=== PATIENT | female | born 1965 | race Caucasian/White ===

== ENCOUNTER 2017-07-17 22:12 | Observation (INO) | payer SELFPAY ==
[2017-07-17] MEDS ORDERED: CLINDAMYCIN 900MG/D5W 900 MG/50 ML BAG IV ONE (22:58)
[2017-07-17 23:39] LABS: Absolute Lymphocytes (CBC) 1.1 K/uL (0.7-4.9); Absolute Neutrophil 4.5 K/uL (1.8-8.0); Basophils % 0.9 % (0-1.3); Eosinophils % 6.6 % (0-4.4); Hematocrit 39.2 % (36.0-45.0); Lymphocytes % 15.3 % (15.3-44.8); MCH 30.9 pg (27.0-35.0); MCV 92.1 fL (80-100); MPV 10.5 fL (7.6-11.3); Monocytes % 13.8 % (3.3-12.3); RBC Red Blood Cell Count 4.25 M/uL (3.86-4.86)
[2017-07-17] MEDS ORDERED: KETOROLAC 30 MG/ML INJ ONE (23:39)
[2017-07-17 23:46] LABS: Protime INR 0.97
[2017-07-18 00:08] LABS: Bicarbonate 29 mEq/L (21-31); CKMB Creatine Kinase MB 1.1 ng/ml (0.3-4.0); Glucose Level 106 mg/dL (65-120); Sodium Level 140 mEq/L (135-145)
[2017-07-18 00:14] LABS: ALT/SGPT 20 IU/L (10-60); AST/SGOT 29 IU/L (10-42); Albumin 3.8 g/dL (3.2-5.5); Alkaline Phosphatase 82 IU/L (42-121); BUN Blood Urea Nitrogen 10 mg/dL (6-20); Bilirubin Direct 0.1 mg/dL (0-0.2); Bilirubin Total < 0.2 mg/dL (0.3-1.2); Creatine Phosphokinase 55 IU/L (22-269); Magnesium 1.8 mg/dL (1.8-2.5); Protein, Total 6.8 g/dL (6.0-8.3)
--- NOTE | 2017-07-18 01:02 | EDPHYS ---
Physician Documentation [facility] Name: Cyndie Brooks Age: 52 yrs Sex: Female : 1965 Arrival Date: 07/17/2017 Time: 22:14 Bed 23 Private MD: ED Physician Quang George HPI: 07/18 00:17 This 52 yrs old Female presents to ER via Ambulatory with complaints of tw4 Facial Swelling, Chest Pain > 30 y/o, Headache, Leg Swelling. 00:17 The patient presents with cellulitis of the right eye and right cheek. Description: The tw4 affected area is moderate sized, erythematous. Onset: The symptoms/episode began/occurred suddenly, yesterday. Possible cause(s): dental caries. Associated signs and symptoms: The patient has no apparent associated signs or symptoms. The patient or guardian reports chest pain that is located primarily in the anterior chest wall. Onset: yesterday. The pain does not radiate. Modifying factors: the symptoms are alleviated by nothing, the symptoms are aggravated by nothing. Associated signs and symptoms: The patient has no apparent associated signs or symptoms. The chest pain is described as dull. Duration: The patient or guardian reports a single episode, that is now resolved. Modifying factors: The symptoms are alleviated by nothing. the symptoms are aggravated by nothing. Severity of pain: At its worst the pain was mild in the emergency department the pain has resolved. Severity of symptoms: At their worst the symptoms were mild, in the emergency department the symptoms have resolved. 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 - Social history:: Smoking status: Patient uses tobacco products, smokes one-half pack cigarettes per day. ROS: 07/18 00:17 Constitutional: Negative for fever, chills, and weight loss. tw4 ENT: Positive for dental pain, sinus pain. Cardiovascular: Positive for chest pain, Negative for edema, orthopnea, palpitations. Exam: 00:17 Constitutional: This is a well developed, well nourished patient who is awake, alert, tw4 and in no acute distress. 00:17 Cardiovascular: Regular rate and rhythm with a normal S1 and S2. No gallops, murmurs, or rubs. Normal PMI, no JVD. No pulse deficits. Respiratory: Lungs have equal breath sounds bilaterally, clear to auscultation and percussion. No rales, rhonchi or wheezes noted. No increased work of breathing, no retractions or nasal flaring. Abdomen/GI: Soft, non-tender, with normal bowel sounds. No distension or tympany. No guarding or rebound. No evidence of tenderness throughout. Back: No spinal tenderness. No costovertebral tenderness. Full range of motion. MS/ Extremity: Pulses equal, no cyanosis. Neurovascular intact. Full, normal range of motion. Neuro: Awake and alert, GCS 15, oriented to person, place, time, and situation. Cranial nerves II-XII grossly intact. Motor strength 5/5 in all extremities. Sensory grossly intact. Cerebellar exam normal. Normal gait. 00:17 Head/face: Noted is erythema, that is moderate, of the right eye and right cheek, swelling, that is moderate, of the right eye and right cheek. Vital Signs: 07/17 22:31 BP 158 / 91; Pulse 83; Resp 18; Temp 98.8; Pulse Ox 99% on R/A; Weight 74.84 kg; Height aa1 5 ft. 5 in. (165.10 cm); Pain 10/10; 23:40 BP 172 / 102; Pulse 77; Resp 18; Pulse Ox 100% ; tl3 07/18 01:13 BP 121 / 100; Pulse 78; Resp 16; Pulse Ox 99% ; tl3 07/17 22:31 Body Mass Index 27.46 (74.84 kg, 165.10 cm) aa1 MDM: 07/17 22:40 Patient medically screened. tw4 07/18 01:07 Differential diagnosis: acute myocardial infarction, acute pericarditis, anxiety, chest tw4 wall pain, pancreatitis, peptic ulcer disease, pulmonary embolus, stable angina, thoracic aortic disection. The patient was given aspirin in the Emergency Department. PHILIP Risk Score: TOTAL SCORE = 0. Data reviewed: vital signs, nurses notes. 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 Test interpretation: by ED physician or midlevel provider: ECG. Counseling: I had a detailed discussion with the patient and/or guardian regarding: the historical points, exam findings, and any diagnostic results supporting the discharge/admit diagnosis, lab results, radiology results. Physician consultation: Luz Banda MD was contacted at 00:55, regarding admission, need to evaluate the patient as soon as possible, and will see patient in inpatient room, later today. Admission orders: after a detailed discussion of the patient's condition and case, the admit orders are written by me. 02:06 ED course: CT reveals multiple dental caries without abscess. 07/17 22:43 Order name: Basic Metabolic Panel; Complete Time: 00:57 07/17 22:43 Order name: BNP; Complete Time: 00:11 07/18 00:12 Interpretation: Within normal limits. 07/17 22:43 Order name: CBC with Diff; Complete Time: 00:11 07/18 00:11 Interpretation: Normal except: MCV 92.1; PLT 145; MN% 13.8; EOSINOPHIL % 6.6. 07/17 22:43 Order name: Ckmb; Complete Time: 00:57 07/17 22:43 Order name: CPK; Complete Time: 00:57 07/17 22:43 Order name: LFT's; Complete Time: 00:57 07/17 22:43 Order name: Magnesium; Complete Time: 00:57 07/17 22:43 Order name: PT-INR; Complete Time: 00:11 07/18 00:12 Interpretation: Within normal limits. 07/17 22:43 Order name: Ptt, Activated; Complete Time: 00:11 07/18 00:13 Interpretation: Within normal limits. 07/17 22:43 Order name: Troponin (emerg Dept Use Only); Complete Time: 00:11 07/18 00:13 Interpretation: Within normal limits. 07/17 22:43 Order name: XRAY Chest (1 view) 07/17 22:50 Order name: Lactate; Complete Time: 00:11 07/18 00:13 Interpretation: Within normal limits. 07/18 00:11 Order name: CT Maxillofacial W/cont 4 07/17 22:43 Order name: EKG; Complete Time: 22:43 4 07/17 22:43 Order name: Cardiac monitoring 4 07/17 22:43 Order name: EKG - Nurse/Tech 4 07/17 22:43 Order name: IV Saline Lock; Complete Time: 23:24 4 07/17 22:43 Order name: Labs collected and sent; Complete Time: 23:24 4 07/17 22:43 Order name: O2 Per Protocol; Complete Time: 23:24 4 07/17 22:43 Order name: O2 Sat Monitoring; Complete Time: 23:24 tw4 Administered Medications: 07/17 22:55 Drug: TORadol 30 mg Route: IVP; Infused Over: 3 mins; Site: left wrist; tl3 23:24 Drug: Clindamycin 900 mg Route: IVPB; Infused Over: 30 mins; Site: left wrist; tl3 Delivery: Primary tubing; 07/18 00:21 Follow up: IV Status: Completed infusion; IV Intake: 550ml tl3 01:44 Drug: Aspirin Chewable Tablet 162 mg Route: PO; rk2 Disposition: 07/18/17 01:01 Hospitalization ordered by Luz Banda for Observation. Preliminary diagnosis are Cellulitis of face, Chest pain, unspecified. - Bed requested for Telemetry/MedSurg (observation). - Status is Observation. rk2 - Condition is Stable. - Problem is new. - Symptoms are unchanged. UTI on Admission? No Signatures: Dispatcher [employer] EDMS Lou Allen RN RN aa1 Quang George MD MD tw4 Ángela Pressley RN RN rk2 Cyndie Valerio RN RN tl3 Rayray Lester mw2 Corrections: (The following items were deleted from the chart) 01:02 01:01 Hospitalization Ordered by Luz Banda MD for Observation. Preliminary tw4 diagnosis is Cellulitis of face. Bed requested for Telemetry/MedSurg (observation). Status is Observation. Condition is Stable. Problem is new. Symptoms are unchanged. UTI on Admission? No. tw4 01:10 01:02 07/18/2017 01:01 Hospitalization Ordered by Luz Banda MD for Observation. mw2 Preliminary diagnosis is Cellulitis of face; Chest pain, unspecified. Bed requested for Telemetry/MedSurg (observation). Status is Observation. Condition is Stable. Problem is new. Symptoms are unchanged. UTI on Admission? No. tw4 02:45 01:10 07/18/2017 01:01 Hospitalization Ordered by Luz Banda MD for Observation. rk2 Preliminary diagnosis is Cellulitis of face; Chest pain, unspecified. Bed requested for Telemetry/MedSurg (observation). Status is Observation. Condition is Stable. Problem is new. Symptoms are unchanged. UTI on Admission? No. mw2
--- NOTE | 2017-07-18 01:02 | ER ---
Nurse's Notes [facility] Name: Cyndie Brooks Age: 52 yrs Sex: Female : 1965 Arrival Date: 07/17/2017 Time: 22:14 Bed 23 Private MD: Diagnosis: Cellulitis of face;Chest pain, unspecified Presentation: 07/17 22:27 Presenting complaint: Patient states: she started having R sided facial swelling aa1 yesterday and it became significantly worse today. States, "I think I got a bad tooth." Reports multiple broken teeth. Reports pain radiates to R ear and down neck and lymph node in R axilla tender. Transition of care: patient was not received from another setting of care. Onset of symptoms was July 16, 2017. Initial Sepsis Screen: Does the patient meet any 2 criteria? No. Patient's initial sepsis screen is negative. Does the patient have a suspected source of infection? Yes:. Care prior to arrival: None. 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 - Social history:: Smoking status: Patient uses tobacco products, smokes one-half pack cigarettes per day. Screenin:42 Abuse screen: Denies threats or abuse. Nutritional screening: No deficits noted. tl3 Tuberculosis screening: No symptoms or risk factors identified. Fall Risk None identified. Assessment: 22:42 Reassessment: pt has hx of dental carries, no dentist or PCP. General: Appears tl3 uncomfortable, well groomed, well developed, well nourished, Behavior is calm, cooperative, appropriate for age. Pain: Complains of pain in right cheek and right jaw Pain does not radiate. Pain currently is 10 out of 10 on a pain scale. Pain began 1 day ago. Neuro: Level of Consciousness is awake, alert, obeys commands, Oriented to person, place, time, situation, Appropriate for age. Cardiovascular: No deficits noted. Heart tones S1 S2 present. Respiratory: Airway is patent Trachea midline Respiratory effort is even, unlabored, Respiratory pattern is regular, symmetrical, Breath sounds are clear bilaterally. GI: No signs and/or symptoms were reported involving the gastrointestinal system. : No signs and/or symptoms were reported regarding the genitourinary system. EENT: No signs and/or symptoms were reported regarding the EENT system. Derm: No signs and/or symptoms reported regarding the dermatologic system. Musculoskeletal: No signs and/or symptoms reported regarding the musculoskeletal system. 23:40 Reassessment: Patient appears in no apparent distress at this time. No changes from tl3 previously documented assessment. Patient and/or family updated on plan of care and expected duration. Pain level reassessed. Patient is alert, oriented x 3, equal unlabored respirations, skin warm/dry/pink. IV infusing without difficulty. 07/18 01:13 Reassessment: Patient appears in no apparent distress at this time. No changes from tl3 previously documented assessment. Patient and/or family updated on plan of care and expected duration. Pain level reassessed. Patient is alert, oriented x 3, equal unlabored respirations, skin warm/dry/pink. pt awaiting CT. Vital Signs: 07/17 22:31 BP 158 / 91; Pulse 83; Resp 18; Temp 98.8; Pulse Ox 99% on R/A; Weight 74.84 kg; Height aa1 5 ft. 5 in. (165.10 cm); Pain 10/10; 23:40 BP 172 / 102; Pulse 77; Resp 18; Pulse Ox 100% ; tl3 07/18 01:13 BP 121 / 100; Pulse 78; Resp 16; Pulse Ox 99% ; tl3 07/17 22:31 Body Mass Index 27.46 (74.84 kg, 165.10 cm) aa1 ED Course: 07/17 21:30 Inserted saline lock: 20 gauge in left forearm, using aseptic technique. Patient tl3 admitted, IV remains in place. 22:14 Patient arrived in ED. am2 22:31 Triage completed. aa1 22:31 Arm band placed on right wrist. Patient placed in an exam room, on a stretcher. aa1 22:40 Quang George MD is Attending Physician. tw4 22:42 Cyndie Valerio RN is Primary Nurse. tl3 22:42 Resting quietly. tl3 22:42 Patient has correct armband on for positive identification. Bed in low position. Call tl3 light in reach. Side rails up X 1. Adult w/ patient. 22:42 No provider procedures requiring assistance completed. Patient did not have IV access tl3 during this emergency room visit. Patient maintains SpO2 saturation greater than 95% on room air. 22:58 XRAY Chest (1 view) In Process Unspecified. EDMS 23:40 Pulse ox on. NIBP on. tl3 07/18 00:37 CT Maxillofacial W/cont In Process Unspecified. EDMS 01:01 Luz Banda MD is Hospitalizing Provider. tw4 01:46 CT completed. Patient tolerated procedure well. Patient moved to MD via wheelchair. Patient moved back from MD. Administered Medications: 07/17 22:55 Drug: TORadol 30 mg Route: IVP; Infused Over: 3 mins; Site: left wrist; tl3 23:24 Drug: Clindamycin 900 mg Route: IVPB; Infused Over: 30 mins; Site: left wrist; tl3 Delivery: Primary tubing; 07/18 00:21 Follow up: IV Status: Completed infusion; IV Intake: 550ml tl3 01:44 Drug: Aspirin Chewable Tablet 162 mg Route: PO; rk2 Intake: 00:21 IV: 550ml; Total: 550ml. tl3 Outcome: 07/17 21:30 Admitted to Tele [facility], via [facility], with chart, Report called to tl3 ADA Malik Condition: stable Instructed on the need for admit, Demonstrated understanding of instructions. 07/18 01:01 Decision to Hospitalize by Provider. tw4 02:45 Patient left the ED. rk2 Signatures: Dispatcher [employer] EDMS Lou Allen, RN RN aa1 Lan Alejandro Leela May am2 Quang George MD MD tw4 Ángela Pressley RN RN rk2 Cyndie Valerio RN RN tl3
[2017-07-18] MEDS ORDERED: ASPIRIN 81 MG CHEWABLE TABLET ONE (01:43)
[2017-07-18] MEDS ORDERED: ACETAMINOPHEN 500 MG TAB PO PRN (02:16)
[2017-07-18] MEDS ORDERED: ONDANSETRON 4 MG/2 ML VIAL IV PRN (02:16)
[2017-07-18] MEDS: NA CHLORIDE 0.9% 1,000 ML IV SCH ×3 (03:00→23:00)
[2017-07-18] MEDS: VANCOMYCIN 1.25 GM in NA CHLORIDE 0.9% 250 ML IVPB SCH ×2 (03:00→15:49)
[2017-07-18] MEDS ORDERED: VANCOMYCIN 500 MG/VIAL ONE (03:12)
[2017-07-18] MEDS ORDERED: VANCOMYCIN 1 GM/VIAL ONE (03:12)
[2017-07-18] MEDS ORDERED: NA CHLORIDE 0.9% 250 ML ONE (03:12)
[2017-07-18] MEDS ORDERED: AMPICILLIN/SULBACTAM 3GM/VIAL ONE (03:43)
--- NOTE | 2017-07-18 04:14 | P.HP ---
Certification for Inpatient Patient admitted to: Observation With expected LOS: <2 Midnights Patient will require the following post-hospital care: None Practitioner: I am a practitioner with admitting privileges, knowledge of patient current condition, hospital course, and medical plan of care. Services: Services provided to patient in accordance with Admission requirements found in Title 42 Section 412.3 of the Code of Federal Regulations Patient History Date of Service: 07/18/17 Reason for admission: Facial cellulitis with dental caries History of Present Illness: Patient is a 52-year-old female who has a history of dental caries. She has been unable to follow-up with a dentist because she is not able to afford to visit one. She has had dental caries for quite a while. She tries to adjust what she eats so she does not have pain. A few days ago she noted she was turned have swelling and more pain on the right side of her face. The swelling spread to her neck and to her she her right eye became involved in his started becoming shot so she decided to come into the hospital for evaluation. In the emergency room she was seen by ER physician and we recommended CT of the orbits. She does not have orbital cellulitis but has a facial cellulitis 2nd very tumor dental caries. We checked her blood cultures as well. She has no cardiac murmur on exam. She will be admitted to the hospital for IV antibiotic therapy. Allergies NKDA Allergy (Uncoded 01/28/15 04:45) Unknown No Known Allergies Allergy (Uncoded 05/30/16 23:52) Unknown Home Medications: NK [No Home Meds] 07/18/17 - Past Medical/Surgical History Has patient received pneumonia vaccine in the past: No Diabetic: No -: HTN -: hysterectomy -: (R) knee SX - Family History Father Medical History: Heart disease, Hypertension, Diabetes Mother Medical History: Heart disease Brother Medical History: Cancer - Social History Smoking Status: Current some day smoker Alcohol use: No CD- Drugs: No Caffeine use: Yes Place of Residence: Home Review of Systems 10-point ROS is otherwise unremarkable Physical Examination - Vital Signs Temperature: 98.8 F Blood Pressure: 121/100 Pulse: 78 Respirations: 16 Pulse Ox (%): 98 - Physical Exam General: Alert, In no apparent distress, Oriented x3 HEENT: PERRLA, Mucous membr. moist/pink, Other (Swelling of the right side of her face; erythema and edema noted; poor dentition and dental caries and numerous teeth), Sclerae nonicteric Neck: Supple, 2+ carotid pulse no bruit, No LAD, Without JVD or thyroid abnormality Respiratory: Clear to auscultation bilaterally, Normal air movement Cardiovascular: Regular rate/rhythm, Normal S1 S2, No murmurs Gastrointestinal: Normal bowel sounds, Soft and benign, Non-distended, No tenderness Musculoskeletal: No clubbing, No swelling, No tenderness Integumentary: No rashes Neurological: Normal gait, Normal speech, Normal strength at 5/5 x4 extr, Normal tone, Sensation intact, Cranial nerves 3-12 intact, Normal affect Lymphatics: No axilla or inguinal lymphadenopathy - Studies Laboratory Data (last 24 hrs) 07/17/17 23:30: PT 11.4, INR 0.97, APTT 28.1 07/17/17 23:30: WBC 7.1, Hgb 13.1, Hct 39.2, Plt Count 145 L 07/17/17 23:30: B-Natriuretic Peptide 100 07/17/17 23:30: Sodium 140, Potassium 4.0, BUN 10, Creatinine 0.82, Glucose 106 , Magnesium 1.8, Total Bilirubin < 0.2 L, AST 29, ALT 20, Alkaline Phosphatase 82 Assessment & Plan - Problems (Diagnosis) (1) Facial cellulitis Current Visit: Yes Status: Acute (2) Dental caries Current Visit: Yes Status: Acute (3) Hypertension Current Visit: Yes Status: Acute - Plan 1. Continue with IV antibiotic 2. Outpatient follow with oral maxillofacial surgeon or local dentist who will extract her teeth 3. Gentle IV hydration 4. Blood cultures pending 5. Pain control 6. GI and DVT prophylaxis Discharge Plan: Home Plan to discharge in: 24 Hours - Advance Directives Does patient have a Living Will: No Does patient have a Durable POA for Healthcare: No - Code Status/Comfort Care Code Status Assessed: Yes Code Status: Full Code Critical Care: No Time Spent Managing PTS Care (In Minutes): 50
[2017-07-18 04:43] LABS: Absolute Lymphocytes (CBC) 1.1 K/uL (0.7-4.9); Absolute Monocytes 1.2 K/uL (0.1-1.3); Absolute Neutrophil 4.7 K/uL (1.8-8.0); Basophils % 0.9 % (0-1.3); Eosinophils % 4.9 % (0-4.4); Hematocrit 36.2 % (36.0-45.0); Lymphocytes % 14.9 % (15.3-44.8); MPV 10.5 fL (7.6-11.3); Monocytes % 16.1 % (3.3-12.3); RBC Red Blood Cell Count 3.93 M/uL (3.86-4.86)
[2017-07-18 04:47] LABS: Potassium 4.2 mEq/L (3.6-5.0)
[2017-07-18 05:17] LABS: Blood Morphology Comment NOT SEEN (NOT SEEN); Platelet Estimate ADEQ
[2017-07-18] MEDS ORDERED: NA CHLORIDE 0.9% 100 ML ONE (05:35)
[2017-07-18] MEDS: AMPICILLIN/SULBACT 3 GM in NA CHLORIDE 0.9% 100 ML IVPB SCH ×4 (05:49→23:56)
[2017-07-18] MEDS: MORPHINE 4 MG/ML SYR IV PRN ×4 (07:52→23:48)
--- NOTE | 2017-07-18 08:21 | RAD REPORT ---
EXAM DESCRIPTION: RAD - Chest Single View - 07/17/2017 11:02 pm CLINICAL HISTORY: Hypertension, smoker. COMPARISON: None. FINDINGS: Portable technique limits examination quality. The lungs are mildly emphysematous but grossly clear. The heart is normal in size. No displaced fract ures. IMPRESSION: No acute intrathoracic process suspected.
--- NOTE | 2017-07-18 08:26 | RAD REPORT ---
EXAM DESCRIPTION: CT - Maxillofacial W/Cont - 07/18/2017 3:41 am CLINICAL HISTORY: Facial pain and swelling. COMPARISON: None. FINDINGS: No acute fracture or dislocation seen. Soft tissue edema is seen in the right periorbital and infraorbital regions extending along the right cheek, maxilla and mandible. Along the right anterior maxilla subperiosteal region, a vague fluid co llection appears to be developing measuring 8 x 9 mm. Several prominent lymph nodes are present in both submandibular regions, largest on the right measuri ng up to 14 mm. Moderate mucoperiosteal thickening involving the right maxillary antrum. Mild thickening of the ethmo id sinus and left maxillary antrum. Multiple dental caries and periapical lucency involving the majority of the visualize teeth which are present. IMPRESSION: Poor dentition as detailed above. Direct visualization/ examination would be advised fur ther workup is needed. Moderate soft tissue swelling is seen along the right aspect of the face, probably odontogenic in taiwo gin. Small fluid collection is seen along the right aspect of the maxilla measuring 8 x 9 mm which ma y represent a developing early subperiosteal abscess.
--- NOTE | 2017-07-18 14:36 | P.PN ---
Subjective Date of Service: 07/18/17 Chief Complaint: Facial cellulitis with dental caries Subjective: Improving (Swelling to the right facial region improved. Minimal pain) Physical Examination - Vital Signs Temperature: 98.5 F Blood Pressure: 128/74 Pulse: 66 Respirations: 16 Pulse Ox (%): 96 - Physical Exam General: Alert, In no apparent distress, Oriented x3, Cooperative HEENT: Other (Swelling to the right face improved. Minimal pain to the in right maxillary region. No significant erythema. No exudate noted. Poor dentition) Neck: Supple Respiratory: Clear to auscultation bilaterally, Normal air movement Cardiovascular: Normal pulses, Regular rate/rhythm Gastrointestinal: Normal bowel sounds, Soft and benign, Non-distended Musculoskeletal: No erythema, No tenderness, No warmth Integumentary: No tenderness/swelling, No erythema, No warmth, No cyanosis Neurological: Normal speech, Normal strength at 5/5 x4 extr, Normal tone, Normal affect - Studies Laboratory Data (last 24 hrs) 07/17/17 23:30: PT 11.4, INR 0.97, APTT 28.1 07/17/17 23:30: WBC 7.1, Hgb 13.1, Hct 39.2, Plt Count 145 L 07/17/17 23:30: B-Natriuretic Peptide 100 07/17/17 23:30: Sodium 140, Potassium 4.0, BUN 10, Creatinine 0.82, Glucose 106 , Magnesium 1.8, Total Bilirubin < 0.2 L, AST 29, ALT 20, Alkaline Phosphatase 82 Medications List Reviewed: Yes Assessment & Plan - Problems (Diagnosis) (1) Abnormal CT scan Current Visit: Yes Status: Acute Plan: CT scan reviewed. Poor dentition noted. Moderate soft tissue swelling seen along the right aspect of the face. Small fluid collection is seen along the right aspect of the maxilla measuring 8 x 9 mm which represents possible developing early subperiosteal abscess. Will have ENT evaluate patient. Will continue IV antibiotic therapy. Patient much improved. Patient will likely need oral surgery evaluation as an outpatient. Will consider discharge later today or tomorrow if okay with ENT. (2) Dental caries Onset Date: 07/18/17 Current Visit: Yes Status: Acute Plan: Continue as above. (3) Facial cellulitis Onset Date: 07/18/17 Current Visit: Yes Status: Acute Plan: Continue with IV antibiotic therapy. Continue as above. Discharge Plan: Home Plan to discharge in: 24 Hours Time Spent Managing Pts Care (In Minutes): 55
[2017-07-19] MEDS: VANCOMYCIN 1.25 GM in NA CHLORIDE 0.9% 250 ML IVPB SCH (03:21)
[2017-07-19] MEDS: MORPHINE 4 MG/ML SYR IV PRN ×3 (04:38→12:36)
[2017-07-19 05:01] VITALS: BMI 27.9
[2017-07-19] MEDS: NA CHLORIDE 0.9% 1,000 ML IV SCH ×2 (06:26→08:12)
[2017-07-19] MEDS: AMPICILLIN/SULBACT 3 GM in NA CHLORIDE 0.9% 100 ML IVPB SCH ×2 (06:26→12:29)
[2017-07-19 09:53] VITALS: O2SAT 99
[2017-07-19 12:02] VITALS: BP 155/83; TEMP 97
--- NOTE | 2017-07-20 07:58 | P.CNS ---
Date of Consult: 07/19/17 Patient admitted to hospitalist service. I was called regarding facial cellulitis with suspected dental origin. CT face with contrast showed a small area of hypoluceny, suspicious for developing abscess. I reviewed the scans and spoke with the admitting MD. He stated that patient was clinically improving on IV Abx and they were making arrangements for outpatient follow-up with a dentist to address the underlying cause of the infection. I did not examine the patient but remain available if she worsens and required further evaluation for possible surgical treatment.
--- NOTE | 2017-07-20 11:49 | DS ---
Date of Discharge: 07/19/2017 Admitting Diagnoses: 1.Facial cellulitis. 2.Dental caries. 3.Hypertension. Discharge Diagnoses: 1.Facial cellulitis, improved. 2.Dental caries. Hospital Course: The patient is a 52-year-old female, who was admitted to the hospital with facial c ellulitis with dental caries. CT scan of the sinuses was done, which showed an 8 x 9 mm fluid collec tion, which may represent developing early subperiosteal abscess. The patient was started on IV anti biotics and IV pain medications. The patient did well. She responded to the antibiotics. Her white count remained normal. She has decrease in her pain. Blood cultures were negative. Dr. Edmond cho s consulted and recommended outpatient followup. She stated that the patient did not need to be seen in the hospital and abscess will likely improve with antibiotic treatment and without any drainage a t this time. The patient was counseled on oral hygiene and recommended to follow up with an oral caitlin geon as soon as possible. She was cautioned that this infection will get worse and return even with antibiotics if she does not see a dentist or oral surgeon to have her dental caries examined and a de ntal infection or abscesses treated. The patient voiced understanding. The patient was doing well. She is afebrile. Her swelling has improved. Erythema was resolved. She is able to tolerate her di et. Pain was controlled. The patient was discharged in a stable condition. Activity as tolerated. Medications: As per medication reconciliation list. Activity: No driving or operating heavy machinery while on narcotics. Diet: Heart healthy. Discharge Instructions: Establish care with PCP. Followup with dentist or oral surgeon in 1 week. Return to ER for worsening condition. Follow up with Dr. Pruitt, ENT as an outpatient in 2-4 weeks if not improving. Physical Examination: General: Awake, alert, oriented, no acute distress. CV: S1, S2. No murmurs. Peripheral pulses present. Respiratory: Moving air well bilaterally. No wheezing. Abdomen: Soft, nontender, and nondistended. Positive bowel sounds. Extremities: No clubbing, cyanosis, or edema. Neurologic: Nonfocal. Skin: The patient does have some mild swelling of the face on the right side, improved. No erythema . Mild tenderness to palpation. SA/MODL Voice ID: [id number] Report ID: [id number]
== END 2017-07-19 15:15 | disposition home or self-care (01) ==
LOC: ER 22:12 → ERHOLD 07-18 01:12 → 4TH 07-18 01:29
PROVIDERS: ADMIT Hospitalist; ATTEND Hospitalist
DX: L03.211 Cellulitis of face (principal); K02.9 Dental caries, unspecified; I10 Essential (primary) hypertension; F17.210 Nicotine dependence, cigarettes, uncomplicated
CPT/HCPCS: 36415; 70487; 71045; 80048; 80076; 80202; 82550; 82553; 83605; 83735; 83880; 84484; 85025; 85610; 85730; 87040; 96365; 96375; 99285; G0378; J0295; J7030; Q9967

== ENCOUNTER 2018-11-12 17:43 | Emergency (ER) | payer SELFPAY ==
[2018-11-12] MEDS ORDERED: HYDROCODONE/APAP 5/325 MG TAB ONE (20:48)
--- NOTE | 2018-11-12 21:56 | RAD REPORT ---
EXAM DESCRIPTION: RAD - Lumbar Spine 3 Views - 11/12/2018 9:00 pm CLINICAL HISTORY: PAIN Radiculopathy COMPARISON: No comparisons FINDINGS: Vertebral body heights appear maintained. No compression fracture noted. Disc spaces are m aintained. No spondylolysis or spondylolisthesis. IMPRESSION: Negative study.
--- NOTE | 2018-11-12 21:57 | RAD REPORT ---
EXAM DESCRIPTION: RAD - Shoulder Right 2 View - 11/12/2018 9:00 pm CLINICAL HISTORY: PAIN COMPARISON: No comparisons FINDINGS: No acute fracture or dislocation seen. Mild AC joint degenerative changes
--- NOTE | 2018-11-12 21:57 | RAD REPORT ---
EXAM DESCRIPTION: RAD - Knee Right 3 View - 11/12/2018 9:00 pm CLINICAL HISTORY: PAIN Trauma, pain COMPARISON: Knee Right 3 View dated 01/27/2015 FINDINGS: Mild osteoarthritic changes are present in all 3 joint compartments. No fracture, dislocat ion or joint effusion. IMPRESSION: No acute finding evident.
--- NOTE | 2018-11-12 22:07 | EDPHYS ---
Physician Documentation [facility] Name: Cyndie Brooks Age: 53 yrs Sex: Female : 1965 Arrival Date: 11/12/2018 Time: 17:44 Bed 5 Private MD: ED Physician Juan F López HPI: 11/12 22:01 This 53 yrs old Female presents to ER via Ambulatory with complaints of Arm gs Pain, Back Pain, Leg Pain. 22:01 Details of fall: The patient fell from seated position, out of a chair. Onset: The gs symptoms/episode began/occurred yesterday. Associated injuries: The patient sustained right shoulder and back and right knee, contusion, painful injury. Severity of symptoms: At their worst the symptoms were moderate, in the emergency department the symptoms are unchanged. The patient has not experienced similar symptoms in the past. The patient has not recently seen a physician. 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 - Social history:: Smoking status: Patient uses tobacco products, smokes one-half pack cigarettes per day. - Ebola Screening: : Patient denies travel to an Ebola-affected area in the 21 days before illness onset. ROS: 22:01 All other systems are negative. gs Exam: 22:01 Head/Face: Normocephalic, atraumatic. Eyes: Pupils equal round and reactive to light, gs extra-ocular motions intact. Lids and lashes normal. Conjunctiva and sclera are non-icteric and not injected. Cornea within normal limits. Periorbital areas with no swelling, redness, or edema. ENT: Nares patent. No nasal discharge, no septal abnormalities noted. Tympanic membranes are normal and external auditory canals are clear. Oropharynx with no redness, swelling, or masses, exudates, or evidence of obstruction, uvula midline. Mucous membranes moist. Neck: Trachea midline, no thyromegaly or masses palpated, and no cervical lymphadenopathy. Supple, full range of motion without nuchal rigidity, or vertebral point tenderness. No Meningismus. Chest/axilla: Normal chest wall appearance and motion. Nontender with no deformity. No lesions are appreciated. Cardiovascular: Regular rate and rhythm with a normal S1 and S2. No gallops, murmurs, or rubs. Normal PMI, no JVD. No pulse deficits. Respiratory: Lungs have equal breath sounds bilaterally, clear to auscultation and percussion. No rales, rhonchi or wheezes noted. No increased work of breathing, no retractions or nasal flaring. Abdomen/GI: Soft, non-tender, with normal bowel sounds. No distension or tympany. No guarding or rebound. No evidence of tenderness throughout. 22:01 Constitutional: The patient appears alert, awake, uncomfortable. 22:01 Back: vertebral tenderness, is appreciated at L2 and L3. 22:01 Musculoskeletal/extremity: Perfusion: the patient is warm, noted to have brisk capillary refill, Joints: the right shoulder displays painful range of motion, tenderness, the right knee displays painful range of motion, tenderness. Vital Signs: 18:14 BP 143 / 82; Pulse 63; Resp 18; Temp 97.8; Pulse Ox 99% on R/A; Weight 70.76 kg (R); aj1 Height 5 ft. 6 in. (167.64 cm) (R); 20:45 BP 153 / 100; Pulse 63; Resp 18; Pulse Ox 100% on R/A; lp1 22:15 BP 140 / 93; Pulse 61; Resp 18; Pulse Ox 100% on R/A; Pain 6/10; lp1 18:14 Body Mass Index 25.18 (70.76 kg, 167.64 cm) aj1 MDM: 20:18 Patient medically screened. 22:01 Differential diagnosis: contusion, fracture. Data reviewed: vital signs, nurses notes, radiologic studies. Counseling: I had a detailed discussion with the patient and/or guardian regarding: the historical points, exam findings, and any diagnostic results supporting the discharge/admit diagnosis, radiology results, the need for outpatient follow up. Response to treatment: the patient's symptoms have markedly improved after treatment. 11/12 20:33 Order name: Shoulder Right (2 View) XRAY; Complete Time: 22:01 11/12 20:33 Order name: Knee Right 3 View XRAY; Complete Time: 22:01 11/12 20:33 Order name: Lumbar Spine (3 Views) XRAY; Complete Time: 22:01 Administered Medications: 21:15 Drug: [place] 5 mg-325 mg 1 tabs Route: PO; lp1 22:15 Follow up: Response: No adverse reaction; RASS: Alert and Calm (0) lp1 Disposition: 11/12/18 22:06 Discharged to Home. Impression: Other sprain of right shoulder joint, Sprain of other specified parts of knee, Contusion of lower back and pelvis. - Condition is Stable. - Discharge Instructions: Contusion, Shoulder Sprain. - Prescriptions for Tylenol- Codeine #4 300-60 mg Oral Tablet - take 1 tablet by ORAL route every 6 hours As needed; 6 tablet. - Medication Reconciliation Form, Thank You Letter, Antibiotic Education, Prescription Opioid Use form. - Follow up: Private Physician; When: 2 - 3 days; Reason: Re-evaluation by your physician. Signatures: Dispatcher [employer] EDFarrah Loyola RN RN aj1 Beatriz Brooks RN RN lp1 Juan F López MD MD Corrections: (The following items were deleted from the chart) 22:57 22:06 11/12/2018 22:06 Discharged to Home. Impression: Other sprain of right shoulder lp1 joint; Sprain of other specified parts of knee; Contusion of lower back and pelvis. Condition is Stable. Forms are Medication Reconciliation Form, Thank You Letter, Antibiotic Education, Prescription Opioid Use. Follow up: Private Physician; When: 2 - 3 days; Reason: Re-evaluation by your physician.
--- NOTE | 2018-11-12 22:07 | ER ---
Nurse's Notes [facility] Name: Cyndie Brooks Age: 53 yrs Sex: Female : 1965 Arrival Date: 11/12/2018 Time: 17:44 Bed 5 Private MD: Diagnosis: Other sprain of right shoulder joint;Sprain of other specified parts of knee;Contusion of lower back and pelvis Presentation: 11/12 18:12 Presenting complaint: Patient states: "I was at the high school yesterday and I sit aj1 down and the seat broke and I hit my back, butt, and arm on the cement" Reports pain to the right shoulder, back, right knee. Transition of care: patient was not received from another setting of care. Onset of symptoms was November 11, 2018. Risk Assessment: Do you want to hurt yourself or someone else? Patient reports no desire to harm self or others. Initial Sepsis Screen: Does the patient meet any 2 criteria? No. Patient's initial sepsis screen is negative. Does the patient have a suspected source of infection? No. Patient's initial sepsis screen is negative. Care prior to arrival: None. 18:12 Method Of Arrival: Ambulatory aj1 18:12 Acuity: GRICELDA 4 aj1 Triage Assessment: 18:14 General: Appears in no apparent distress. uncomfortable, Behavior is calm, cooperative, aj1 appropriate for age. Pain: Complains of pain in back, buttocks, anterior aspect of right shoulder, posterior aspect of right shoulder and right knee. Neuro: Level of Consciousness is awake, alert, obeys commands, Oriented to person, place, time, situation. Cardiovascular: Patient's skin is warm and dry. Musculoskeletal: Range of motion: limited in right shoulder and right knee. 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 - Social history:: Smoking status: Patient uses tobacco products, smokes one-half pack cigarettes per day. - Ebola Screening: : Patient denies travel to an Ebola-affected area in the 21 days before illness onset. Screenin:39 Abuse screen: Denies threats or abuse. Denies injuries from another. Nutritional lp1 screening: No deficits noted. Tuberculosis screening: No symptoms or risk factors identified. Fall Risk None identified. Assessment: 20:30 General: Appears in no apparent distress. Behavior is calm, cooperative, appropriate lp1 for age. Pain: Complains of pain in right shoulder, right upper arm, right knee Pain currently is 7 out of 10 on a pain scale. Neuro: Level of Consciousness is awake, alert, obeys commands. Cardiovascular: Patient's skin is warm and dry. Respiratory: Respiratory effort is even, unlabored. GI: No signs and/or symptoms were reported involving the gastrointestinal system. : No signs and/or symptoms were reported regarding the genitourinary system. EENT: No signs and/or symptoms were reported regarding the EENT system. Derm: Skin is pink, warm \\T\\ dry. Musculoskeletal: Range of motion: limited in right shoulder and right knee related to pain. 20:45 Reassessment: Right arm elevated with towel for comfort. lp1 Vital Signs: 18:14 BP 143 / 82; Pulse 63; Resp 18; Temp 97.8; Pulse Ox 99% on R/A; Weight 70.76 kg (R); aj1 Height 5 ft. 6 in. (167.64 cm) (R); 20:45 BP 153 / 100; Pulse 63; Resp 18; Pulse Ox 100% on R/A; lp1 22:15 BP 140 / 93; Pulse 61; Resp 18; Pulse Ox 100% on R/A; Pain 6/10; lp1 18:14 Body Mass Index 25.18 (70.76 kg, 167.64 cm) aj1 ED Course: 17:44 Patient arrived in ED. as 18:13 Triage completed. aj1 18:14 Arm band placed on Patient placed in waiting room, Patient notified of wait time. aj1 19:09 Juan F López MD is Attending Physician. gs 20:12 Beatriz Brooks, ADA is Primary Nurse. lp1 20:30 Patient has correct armband on for positive identification. lp1 21:01 Shoulder Right (2 View) XRAY In Process Unspecified. EDMS 21:01 Knee Right 3 View XRAY In Process Unspecified. EDMS 21:01 Lumbar Spine (3 Views) XRAY In Process Unspecified. EDMS 21:39 No provider procedures requiring assistance completed. Patient did not have IV access lp1 during this emergency room visit. 22:15 Sling applied to right arm. lp1 Administered Medications: 21:15 Drug: [place] 5 mg-325 mg 1 tabs Route: PO; lp1 22:15 Follow up: Response: No adverse reaction; RASS: Alert and Calm (0) lp1 Outcome: 22:06 Discharge ordered by . gs 22:25 Discharged to home ambulatory, with friend. lp1 22:25 Condition: good 22:25 Discharge instructions given to patient, Instructed on discharge instructions, follow up and referral plans. medication usage, Demonstrated understanding of instructions, follow-up care, medications, Prescriptions given X 1. 22:30 Patient left the ED. lp1 Signatures: Dispatcher [employer] EDNH Farrah Moore RN RN aj1 Jumana Lovelace Laura, RN RN lp1 Juan F López MD MD Corrections: (The following items were deleted from the chart) 23:33 22:57 Patient left the ED. lp1 lp1
[2018-11-13 06:53] VITALS: TEMP 97.8
[2018-11-13 06:54] VITALS: BP 153/100; O2SAT 100
== END 2018-11-12 22:57 | disposition home or self-care (01) ==
LOC: ER 17:43
DX: S43.491A Other sprain of right shoulder joint, initial encounter (principal); S83.91XA Sprain of unspecified site of right knee, initial encounter; S30.0XXA Contusion of lower back and pelvis, initial encounter; W07.XXXA Fall from chair, initial encounter; Y93.9 Activity, unspecified; Y92.9 Unspecified place or not applicable; I10 Essential (primary) hypertension; F17.210 Nicotine dependence, cigarettes, uncomplicated
CPT/HCPCS: 72100; 99284

== ENCOUNTER 2018-12-07 14:38 | Observation (INO) | payer SELFPAY ==
[2018-12-07 15:16] LABS: Absolute Lymphocytes (CBC) 1.2 K/uL (0.7-4.9); Basophils % 0.9 % (0-1.3); Hematocrit 39.6 % (36.0-45.0); MPV 10.7 fL (7.6-11.3); RBC Red Blood Cell Count 4.11 M/uL (3.86-4.86)
[2018-12-07 15:17] LABS: Protime INR 1.03
[2018-12-07 15:34] LABS: ALT/SGPT 24 U/L (12-78); AST/SGOT 22 U/L (15-37); Albumin 3.4 g/dL (3.4-5.0); Alkaline Phosphatase 89 U/L (45-117); BUN Blood Urea Nitrogen 9 mg/dL (7-18); Bicarbonate 26 mmol/L (21-32); Bilirubin Direct < 0.1 mg/dL (0-0.2); Bilirubin Total 0.1 mg/dL (0.2-1.0); Glucose Level 108 mg/dL (74-106); Magnesium 1.9 mg/dL (1.8-2.4); NT PRO-BNP 71 pg/mL (<125); Protein, Total 6.3 g/dL (6.4-8.2); Sodium Level 138 mmol/L (136-145); Troponin (Emerg Dept Use Only) < 0.02 ng/mL (0.0-0.045)
--- NOTE | 2018-12-07 17:38 | EDPHYS ---
Physician Documentation [facility] Name: Cyndie Brooks Age: 53 yrs Sex: Female : 1965 Arrival Date: 12/07/2018 Time: 14:38 Bed 24 Private MD: MILTON Physician Montrell Gilmore HPI: 12/07 16:03 This 53 yrs old Female presents to ER via EMS with complaints of Chest Pain > snw 31 y/o. 16:03 The patient or guardian reports chest pain that is located primarily in the anterior snw chest wall, left. Onset: suddenly, this morning. The pain radiates to central back between shoulder blades. Associated signs and symptoms: Pertinent positives: shortness of breath, possible syncope. The chest pain is described as a pressure, deep ache not affected by movement. Duration: The patient or guardian reports a single episode, that is still ongoing, and unchanged. Severity of pain: At its worst the pain was moderate. The patient has not experienced similar symptoms in the past. The patient has not recently seen a physician. + smoker. 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 - Social history:: Smoking status: Patient uses tobacco products, 2-3 cigarettes a day. - Ebola Screening: : Patient negative for fever greater than or equal to 101.5 degrees Fahrenheit, and additional compatible Ebola Virus Disease symptoms Patient denies exposure to infectious person Patient denies travel to an Ebola-affected area in the 21 days before illness onset No symptoms or risks identified at this time. ROS: 15:56 Constitutional: Negative for fever, chills, and weight loss, Eyes: Negative for injury, snw pain, redness, and discharge, ENT: Negative for injury, pain, and discharge, Neck: Negative for injury, pain, and swelling, Abdomen/GI: Negative for abdominal pain, nausea, vomiting, diarrhea, and constipation, : Negative for injury, bleeding, discharge, and swelling, MS/Extremity: Negative for injury and deformity, Skin: Negative for injury, rash, and discoloration, Neuro: Negative for headache, weakness, numbness, tingling, and seizure, Psych: Negative for depression, anxiety, suicide ideation, homicidal ideation, and hallucinations. 15:56 Cardiovascular: Positive for chest pain, of the anterior aspect of left upper chest and left breast. 15:56 Respiratory: Positive for shortness of breath, at rest. 15:56 Back: Positive for pain at rest, of the thoracic area. Exam: 15:54 Constitutional: This is a well developed, well nourished patient who is awake, alert, snw and in no acute distress. Head/Face: Normocephalic, atraumatic. Eyes: Pupils equal round and reactive to light, extra-ocular motions intact. Lids and lashes normal. Conjunctiva and sclera are non-icteric and not injected. Cornea within normal limits. Periorbital areas with no swelling, redness, or edema. ENT: Nares patent. No nasal discharge, no septal abnormalities noted. Tympanic membranes are normal and external auditory canals are clear. Oropharynx with no redness, swelling, or masses, exudates, or evidence of obstruction, uvula midline. Poor dentition. Mucous membranes moist. Neck: Trachea midline, no thyromegaly or masses palpated, and no cervical lymphadenopathy. Supple, full range of motion without nuchal rigidity, or vertebral point tenderness. No Meningismus. Chest/axilla: Normal chest wall appearance and motion. Nontender with no deformity. No lesions are appreciated. Abdomen/GI: Soft, non-tender, with normal bowel sounds. No distension or tympany. No guarding or rebound. No evidence of tenderness throughout. Back: No spinal tenderness. No costovertebral tenderness. Full range of motion. Skin: Warm, dry with normal turgor. Normal color with no rashes, no lesions, and no evidence of cellulitis. MS/ Extremity: Pulses equal, no cyanosis. Neurovascular intact. Full, normal range of motion. Neuro: Awake and alert, GCS 15, oriented to person, place, time, and situation. Cranial nerves II-XII grossly intact. Motor strength 5/5 in all extremities. Sensory grossly intact. Cerebellar exam normal. Normal gait. Psych: Awake, alert, with orientation to person, place and time. Behavior, mood, and affect are within normal limits. 15:54 Cardiovascular: Rate: normal, Rhythm: regular. 15:54 Respiratory: the patient does not display signs of respiratory distress, Respirations: shallow respirations, Breath sounds: are clear throughout. Vital Signs: 14:42 BP 126 / 94; Pulse 71; Resp 18 S; Temp 98.5(O); Pulse Ox 99% on R/A; Weight 72.12 kg ca1 (R); Height 5 ft. 6 in. (167.64 cm) (R); Pain 8/10; 15:33 BP 119 / 93; Pulse 64; Resp 15 S; Pulse Ox 100% on R/A; rv 16:15 BP 125 / 89; Pulse 59; Resp 17 S; Pulse Ox 99% on R/A; ca1 17:04 BP 150 / 84; Pulse 60; Resp 18 S; Pulse Ox 100% ; ca1 17:33 BP 144 / 88; Pulse 62; Resp 17 S; Pulse Ox 100% on R/A; ca1 18:06 BP 149 / 84; Pulse 57; Resp 14 S; Pulse Ox 100% on R/A; ca1 19:00 BP 124 / 84; Pulse 58; Resp 16 S; Pulse Ox 99% on R/A; ca1 14:42 Body Mass Index 25.66 (72.12 kg, 167.64 cm) ca1 MDM: 15:32 Patient medically screened. malathi 15:58 HEART Score: History: Moderately Suspicious (1), ECG: Non specific repolarization snw disturbance / LBTB / PM (1), Age: > 45 and < 65 years (1), Risk Factors: 1 or 2 risk factors (1), [Hypertension] [Active Smoker] Troponin: < or = 1 x Normal Limit (0), Total Score = 4. The patient was not given aspirin in the Emergency Department. Patient reports taking aspirin within the past 24 hours. Data reviewed: vital signs, nurses notes, EMS record. 16:02 Data interpreted: Pulse oximetry: on room air is 100 %. Interpretation: normal. snw Counseling: I had a detailed discussion with the patient and/or guardian regarding: the historical points, exam findings, and any diagnostic results supporting the discharge/admit diagnosis, the presence of at least one elevated blood pressure reading (>120/80) during this emergency department visit, lab results, radiology results, the need for further work-up and treatment in the hospital. Physician consultation: Lizeth Bernstein MD was called at 16:02, was contacted at 16:02, regarding admission, to the telemetry unit. Hospitalist push back for admission. I continue to feel pt needs further eval., would like consultation with Dr. Dr. Gilmore. 19:23 Refusal of service: The patient/guardian displays adequate decision making capability snw and despite a detailed discussion of alternatives, benefits, risks, and consequences refuses: Dr. Bernstein gave admission to Dr. Mckeon. Dr. Mckeon saw pt in ED, agrees to admit. 1914, Pt decided to leave AMA. Encouraged to stay. Declines. Accepts at least repeat EKG and trop. 12/07 14:56 Order name: Basic Metabolic Panel; Complete Time: 15:35 rv 12/07 14:56 Order name: CBC with Diff; Complete Time: 15:35 rv 12/07 14:56 Order name: LFT's; Complete Time: 15:35 rv 12/07 14:56 Order name: Magnesium; Complete Time: 15:35 rv 12/07 14:56 Order name: NT PRO-BNP; Complete Time: 15:35 rv 12/07 14:56 Order name: PT-INR; Complete Time: 15:35 rv 12/07 14:56 Order name: Troponin (emerg Dept Use Only); Complete Time: 15:35 rv 12/07 14:56 Order name: XRAY Chest (1 view) rv 12/07 14:56 Order name: EKG; Complete Time: 14:57 rv 12/07 14:56 Order name: Cardiac monitoring; Complete Time: 15:01 rv 12/07 15:56 Order name: CT Head C Spine [facility] 12/07 15:56 Order name: CT Chest For PE Angio [facility] 12/07 19:14 Order name: Troponin I rv 12/07 14:56 Order name: EKG - Nurse/Tech; Complete Time: 15:02 rv 12/07 14:56 Order name: IV Saline Lock; Complete Time: 15:02 rv 12/07 14:56 Order name: Labs collected and sent; Complete Time: 15:02 rv 12/07 14:56 Order name: O2 Per Protocol; Complete Time: 15:02 rv 12/07 14:56 Order name: O2 Sat Monitoring; Complete Time: 15:02 rv Administered Medications: 18:12 Drug: Tylenol 650 mg Route: PO; ca1 19:00 Follow up: Response: No adverse reaction; Pain is decreased ca1 Disposition: 12/08 06:47 Co-signature as Attending Physician, Montrell Gilmore MD I agree with the assessment and [facility] plan of care. Disposition: 12/07/18 17:37 Hospitalization ordered by Abel Mckeon for Observation. Preliminary diagnosis is Chest pain, unspecified. - Bed requested for Telemetry/MedSurg (observation). - Status is Observation. ca1 - Condition is Stable. - Problem is new. - Symptoms are unchanged. UTI on Admission? No Signatures: Dispatcher [employer] Montrell Gabriel MD MD cha Therrien, Shelly, FRONT OFFICE DEVELOPER-C FRONT OFFICE DEVELOPER-Csnw Dread Jordan RN RN rv Brianna Fraga RN RN ca1 Corrections: (The following items were deleted from the chart) 12/07 15:59 15:54 Constitutional: This is a well developed, well nourished patient who is awake, snw alert, and in no acute distress. Head/Face: Normocephalic, atraumatic. Eyes: Pupils equal round and reactive to light, extra-ocular motions intact. Lids and lashes normal. Conjunctiva and sclera are non-icteric and not injected. Cornea within normal limits. Periorbital areas with no swelling, redness, or edema. ENT: Nares patent. No nasal discharge, no septal abnormalities noted. Tympanic membranes are normal and external auditory canals are clear. Oropharynx with no redness, swelling, or masses, exudates, or evidence of obstruction, uvula midline. Mucous membranes moist. Neck: Trachea midline, no thyromegaly or masses palpated, and no cervical lymphadenopathy. Supple, full range of motion without nuchal rigidity, or vertebral point tenderness. No Meningismus. Chest/axilla: Normal chest wall appearance and motion. Nontender with no deformity. No lesions are appreciated. Abdomen/GI: Soft, non-tender, with normal bowel sounds. No distension or tympany. No guarding or rebound. No evidence of tenderness throughout. Back: No spinal tenderness. No costovertebral tenderness. Full range of motion. Skin: Warm, dry with normal turgor. Normal color with no rashes, no lesions, and no evidence of cellulitis. MS/ Extremity: Pulses equal, no cyanosis. Neurovascular intact. Full, normal range of motion. Neuro: Awake and alert, GCS 15, oriented to person, place, time, and situation. Cranial nerves II-XII grossly intact. Motor strength 5/5 in all extremities. Sensory grossly intact. Cerebellar exam normal. Normal gait. Psych: Awake, alert, with orientation to person, place and time. Behavior, mood, and affect are within normal limits. snw 16:01 15:58 HEART Score: History: Moderately Suspicious (1), ECG: Age: > 45 and < 65 years snw (1), Risk Factors: 1 or 2 risk factors (1), [Hypertension] [Active Smoker] Troponin: < or = 1 x Normal Limit (0), Total Score = 3 snw 19:24 17:37 Hospitalization Ordered by Abel Mckeon MD for Observation. Preliminary diagnosis ca1 is Chest pain, unspecified. Bed requested for Telemetry/MedSurg (observation). Status is Observation. Condition is Stable. Problem is new. Symptoms are unchanged. UTI on Admission? No. snw
--- NOTE | 2018-12-07 17:38 | ER ---
Nurse's Notes [facility] Name: Cyndie Brooks Age: 53 yrs Sex: Female : 1965 Arrival Date: 12/07/2018 Time: 14:38 Bed 24 Private MD: Diagnosis: Chest pain, unspecified Presentation: 12/07 14:39 Presenting complaint: EMS states: c/o chest pain at 0700 today. Pt reported to have ca1 passed out but not completely loss consciousness. Chest pain at the L side that radiates to the L shoulder blade. Denies N/V. Reports to have taken to regular aspiring 45 minutes ago. Transition of care: patient was not received from another setting of care. Onset of symptoms was December 07, 2018 at 07:00. Risk Assessment: Do you want to hurt yourself or someone else? Patient reports no desire to harm self or others. Initial Sepsis Screen: Does the patient meet any 2 criteria? No. Patient's initial sepsis screen is negative. Does the patient have a suspected source of infection? No. Patient's initial sepsis screen is negative. Care prior to arrival: Glucose check: 93. 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 - Social history:: Smoking status: Patient uses tobacco products, 2-3 cigarettes a day. - Ebola Screening: : Patient negative for fever greater than or equal to 101.5 degrees Fahrenheit, and additional compatible Ebola Virus Disease symptoms Patient denies exposure to infectious person Patient denies travel to an Ebola-affected area in the 21 days before illness onset No symptoms or risks identified at this time. Screenin:43 Abuse screen: Denies threats or abuse. Denies injuries from another. Nutritional ca1 screening: No deficits noted. Tuberculosis screening: No symptoms or risk factors identified. Fall Risk Fall in past 12 months (25 points). IV access (20 points). Assessment: 14:43 General: Appears in no apparent distress. comfortable, Behavior is calm, cooperative, ca1 appropriate for age. Pain: Complains of pain in right lateral posterior chest and left breast Pain radiates to left scapular area Pain currently is 8 out of 10 on a pain scale. Quality of pain is described as aching, Pain began 0700 today Is continuous. Pain: Aggravated by breathing. Neuro: Cardiovascular: Heart tones S1 S2 present Capillary refill < 3 seconds Patient's skin is warm and dry. Pulses are all present. Rhythm is sinus rhythm. Respiratory: Airway is patent Respiratory effort is even, unlabored, Respiratory pattern is regular, symmetrical, Breath sounds are clear bilaterally. GI: Abdomen is round non-distended, Bowel sounds present X 4 quads. Abd is soft and non tender X 4 quads. Patient currently denies nausea, vomiting. : No deficits noted. No signs and/or symptoms were reported regarding the genitourinary system. EENT: No deficits noted. No signs and/or symptoms were reported regarding the EENT system. Derm: Skin is intact, is healthy with good turgor, Skin is pink, warm \T\ dry. Musculoskeletal: Circulation, motion, and sensation intact. Capillary refill < 3 seconds, Range of motion: intact in all extremities. 15:33 Reassessment: Patient appears in no apparent distress at this time. Patient and/or rv family updated on plan of care and expected duration. Pain level reassessed. Patient is alert, oriented x 3, equal unlabored respirations, skin warm/dry/pink. 16:15 Reassessment: Patient appears in no apparent distress at this time. Patient and/or ca1 family updated on plan of care and expected duration. Pain level reassessed. Patient is alert, oriented x 3, equal unlabored respirations, skin warm/dry/pink. 17:04 Reassessment: Patient appears in no apparent distress at this time. Patient and/or ca1 family updated on plan of care and expected duration. Pain level reassessed. Patient is alert, oriented x 3, equal unlabored respirations, skin warm/dry/pink. 17:30 Reassessment: Dr. Mckeon at bedside. ca1 18:06 Reassessment: Patient appears in no apparent distress at this time. Patient and/or ca1 family updated on plan of care and expected duration. Pain level reassessed. Patient is alert, oriented x 3, equal unlabored respirations, skin warm/dry/pink. 18:11 Reassessment: Pt c/o headache. Notified provider. Order given. ca1 19:15 Reassessment: Patient appears in no apparent distress at this time. Patient is alert, ca1 oriented x 3, equal unlabored respirations, skin warm/dry/pink. Vital Signs: 14:42 BP 126 / 94; Pulse 71; Resp 18 S; Temp 98.5(O); Pulse Ox 99% on R/A; Weight 72.12 kg ca1 (R); Height 5 ft. 6 in. (167.64 cm) (R); Pain 8/10; 15:33 BP 119 / 93; Pulse 64; Resp 15 S; Pulse Ox 100% on R/A; rv 16:15 BP 125 / 89; Pulse 59; Resp 17 S; Pulse Ox 99% on R/A; ca1 17:04 BP 150 / 84; Pulse 60; Resp 18 S; Pulse Ox 100% ; ca1 17:33 BP 144 / 88; Pulse 62; Resp 17 S; Pulse Ox 100% on R/A; ca1 18:06 BP 149 / 84; Pulse 57; Resp 14 S; Pulse Ox 100% on R/A; ca1 19:00 BP 124 / 84; Pulse 58; Resp 16 S; Pulse Ox 99% on R/A; ca1 14:42 Body Mass Index 25.66 (72.12 kg, 167.64 cm) ca1 ED Course: 14:38 Patient arrived in ED. ss 14:39 Brianna Fraga, RN is Primary Nurse. ca1 14:41 Triage completed. ca1 14:42 Arm band placed on right wrist. EKG completed in triage. Results shown to MD. ca1 14:43 Patient has correct armband on for positive identification. Placed in gown. Bed in low ca1 position. Call light in reach. Side rails up X 1. rehabilitation program manager on. Pulse ox on. NIBP on. Warm blanket given. 14:47 No provider procedures requiring assistance completed. ca1 14:47 Patient maintains SpO2 saturation greater than 95% on room air. ca1 15:01 EKG done, by tissue technician. reviewed by Montrell Gilmore MD. sm3 15:02 Initial lab(s) drawn, by ED staff, sent to lab. Inserted saline lock: 20 gauge in right ca1 antecubital area, using aseptic technique. ,using aseptic technique. by ADA Macedo Blood collected. 15:24 XRAY Chest (1 view) In Process Unspecified. EDMS 15:31 Hannah Esparza FNP-C is PHCP. snw 15:32 Montrell Gilmore MD is Attending Physician. [facility] 15:39 Montrell Gilmore MD is Attending Physician. snw 16:32 CT Head C Spine In Process Unspecified. EDMS 16:32 CT Chest For PE Angio In Process Unspecified. EDMS 16:39 CT completed. Patient tolerated procedure well. Patient moved back from CT. 2 17:37 Abel Mckeon MD is Hospitalizing Provider. snw 19:22 IV discontinued, intact, bleeding controlled, No redness/swelling at site. Pressure ca1 dressing applied. Administered Medications: 18:12 Drug: Tylenol 650 mg Route: PO; ca1 19:00 Follow up: Response: No adverse reaction; Pain is decreased ca1 Outcome: 17:37 Decision to Hospitalize by Provider. snw 19:22 AMA AMA form signed ca1 19:22 Condition: stable 19:24 Patient left the ED. ca1 Signatures: Dispatcher [employer] EDNV Montrell Gilmore MD MD cha Therrien, Shelly, FNP-C ENERGY ASSISTANT-Csnw Diann Kumari RN RN Vikki Rodriguez [facility] Charlotte Lundberg [facility] Dread Jordan RN RN rv Acob, Cheryl, RN RN ca1 Corrections: (The following items were deleted from the chart) 19:23 19:22 Condition: improved ca1 ca1
[2018-12-07] MEDS ORDERED: ACETAMINOPHEN 325 MG TABLET ONE (18:08)
--- NOTE | 2018-12-07 18:42 | P.HP ---
Certification for Inpatient Patient admitted to: Observation With expected LOS: <2 Midnights Practitioner: I am a practitioner with admitting privileges, knowledge of patient current condition, hospital course, and medical plan of care. Services: Services provided to patient in accordance with Admission requirements found in Title 42 Section 412.3 of the Code of Federal Regulations Patient History Date of Service: 12/07/18 Reason for admission: Chest pain after a fall History of Present Illness: This is a 53-year-old female with past medical history of hypertension who is not been on any medications, current smoker who presented to the emergency room with complaints of left-sided chest pain. Per patient, she fell this morning and she does not remember how but it seems like she rolled off the bed when she was still asleep. She states that she did not hit any dresser or table but since then she has been complaining of chest pain that it is directly below her left breast, radiating to the side and around towards the back. This pain she describes as a pressure that is worse with deep breath and any kind of movement. She did aspirin hydrocodone that she had at home any nausea, excessive sweating, vision changes, other GI or complaints. She does endorse a headache at this time along with some intermittent dizziness. She states that she has a history of high blood pressure but she has not been taking any blood pressure medications that she does not have any resources. She does state that she buy cigarettes and she does smoke a vape pen. Due to these above symptoms, she came to the emergency room. In the ER, blood pressure was 126/94, heart rate of 71, respirations of 18, temperature 98.5 and satting 99% on room air. 6. Labs fairly unremarkable. Troponin negative x1. The EKG with low voltage, otherwise normal. Chest x-ray was still pending. She did not receive any medications in the ER other than acetaminophen. At the time of my exam, patient was alert oriented x3, in moderate amount of distress due to pain. She was hemodynamically stable however. The ER physician felt like this patient needed to be admitted for further chest pain rule out workup. Allergies No Known Allergies Allergy (Unverified 07/18/17 09:03) Home medications list reviewed: Yes Home Medications: Amoxicillin/Potassium Clav [Augmentin 875-125 Tablet] 1 each PO BID #20 tablet 07/19/17 Codeine/APAP [Tylenol W/Codeine #3 tab] 1 tab PO Q6HP PRN #12 tab 07/19/17 - Past Medical/Surgical History Diabetic: No -: HTN -: hysterectomy -: (R) knee SX - Family History Father -: Heart disease, Hypertension, Diabetes Mother -: Heart disease Brother -: Cancer - Social History Alcohol use: No CD- Drugs: No Caffeine use: Yes Review of Systems 10-point ROS is otherwise unremarkable Physical Examination - Physical Exam General: Alert, Oriented x3, Disheveled, Mild distress HEENT: Atraumatic, PERRLA, Mucous membr. moist/pink, EOMI, Sclerae nonicteric Neck: Supple, 2+ carotid pulse no bruit, No LAD, Without JVD or thyroid abnormality Respiratory: Clear to auscultation bilaterally, Normal air movement Cardiovascular: Regular rate/rhythm, Normal S1 S2 Gastrointestinal: Normal bowel sounds, No tenderness Musculoskeletal: No tenderness Integumentary: No rashes Neurological: Normal gait, Normal speech, Normal strength at 5/5 x4 extr, Normal tone, Normal affect Lymphatics: No axilla or inguinal lymphadenopathy - Studies Laboratory Data (last 24 hrs) 12/07/18 15:00: PT 12.1, INR 1.03 12/07/18 15:00: WBC 9.5, Hgb 13.5, Hct 39.6, Plt Count 171 12/07/18 15:00: Sodium 138, Potassium 4.0, BUN 9, Creatinine 0.67, Glucose 108 H , Magnesium 1.9, Total Bilirubin 0.1 L, AST 22, ALT 24, Alkaline Phosphatase 89 Assessment and Plan - Plan Chest pain, rule out ACS -Heart score: 3, moderate. EKG with low voltage changes, age 53, hyperlipidemia, current smoking, family history hypertension -pain is likely secondary to musculoskeletal from the fall. -troponin negative x1, trend troponin -ECHO ordered, pending -chest pain guidelines Status post fall Hypertension DVT prophylaxis: Aspirin/Plavix GI prophylaxis: None Diet: Heart healthy Disposition: Pending symptomatic improvement. Anticipate discharge home in the next 24 hr. Discharge Plan: Home Plan to discharge in: 24 Hours - Advance Directives Does patient have a Living Will: No Does patient have a Durable POA for Healthcare: No Time Spent Managing Pts Care (In Minutes): 45
[2018-12-07 19:56] VITALS: TEMP 98.5
[2018-12-07 20:05] VITALS: BP 124/84; O2SAT 99
--- NOTE | 2018-12-08 19:05 | RAD REPORT ---
EXAM DESCRIPTION: RAD - Chest Single View - 12/07/2018 3:22 pm CLINICAL HISTORY: Chest pain, left-sided chest pain COMPARISON: July 2017 TECHNIQUE: AP portable chest image was obtained 1515 hours . FINDINGS: Lung volumes are low. No focal lung parenchymal process. No failure or volume overload. He art and vasculature are normal. No measurable pleural effusion and no pneumothorax. No acute bony abn ormality seen. No acute aortic findings suspected. IMPRESSION: No acute cardiopulmonary process. No significant interval change.
--- NOTE | 2018-12-08 19:06 | EKG ---
Test Date: 2018-12-07 Test Time: 14:41:12 Engineering Intern: DAVIS MEASUREMENT RESULTS: Intervals: Rate: 65 SD: 136 QRSD: 84 QT: 414 QTc: 430 Huger: P: 75 SD: 136 QRS: 5 T: 40 INTERPRETIVE STATEMENTS: Normal sinus rhythm Low voltage QRS Borderline ECG Compared to ECG 02/27/2015 00:05:57 Myocardial infarct finding no longer present Electronically Signed On 12-07-18 17:49:58 CDT by Loyd Juarez
--- NOTE | 2018-12-09 04:45 | EKG ---
Test Date: 2018-12-07 Test Time: 19:13:13 Day Guard: RV MEASUREMENT RESULTS: Intervals: Rate: 53 RI: 144 QRSD: 88 QT: 464 QTc: 435 Seymour: P: 53 RI: 144 QRS: 22 T: 38 INTERPRETIVE STATEMENTS: Sinus bradycardia Low voltage QRS Borderline ECG Compared to ECG 12/07/2018 14:41:12 Sinus rhythm no longer present Electronically Signed On 12-09-18 04:44:57 CDT by Loyd Juarez
--- NOTE | 2018-12-09 12:12 | RAD REPORT ---
EXAM DESCRIPTION: CT - Chest For Pe Angio - 12/08/2018 7:01 pm CLINICAL HISTORY: CHEST PAIN COMPARISON: Chest Single View dated 12/07/2018 TECHNIQUE: Dynamically enhanced 3 mm thick images of the chest were obtained during administration o f approximately 150mL Isovue 370 IV contrast. Coronal and oblique MIP reconstruction images were gene rated and reviewed. Exam utilizes a protocol to evaluate the pulmonary arterial tree. All CT scans are performed using dose optimization technique as appropriate and may include automated exposure control or mA/KV adjustment according to patient size. FINDINGS: No pulmonary emboli are identified. The aorta as imaged shows no acute or suspicious finding. No pericardial thickening or effusion. No focal mass or consolidation. Hazy ground-glass opacities in the posterior bilateral lower lobes be lieved to be atelectasis rather than alveolitis or edema. No pleural effusion or pleural thickening. No mediastinal or hilar suspicious masses. No chest wall masses or abnormal axillary lymphadenopathy. IMPRESSION: No pulmonary emboli identified. No other significant or suspicious findings. Note: Due to prolonged technical issues with the PACs/dictation systems, final written report was del ayed. Verbal report telephoned to the referring clinician at the time of the study.
--- NOTE | 2018-12-09 12:15 | RAD REPORT ---
EXAM DESCRIPTION: CT - [id number] - 12/08/2018 7:01 pm CLINICAL HISTORY: Fall, head and neck injury, headache, neck pain COMPARISON: None. TECHNIQUE: Axial 5 mm thick images of the head were obtained. Axial 2 mm thick images of the cervic al spine were obtained with sagittal and coronal reconstruction images generated and reviewed. All CT scans are performed using dose optimization technique as appropriate and may include automated exposure control or mA/KV adjustment according to patient size. FINDINGS: No intracranial hemorrhage, mass, edema or acute intracranial finding. No suspicion for acute infarct ion. No extra-axial fluid collections. Mastoid air cells and paranasal sinuses are clear. No globe or orbit abnormality seen. Cervical body height and alignment are normal. No disk space narrowing. No fracture or acute bony abn ormality. No paraspinal mass or hematoma. Small bilateral cervical lymph nodes are present not fully assessed o n noncontrast CT cervical spine imaging. No large or bulky lymphadenopathy seen. IMPRESSION: Negative CT head examination for acute or significant finding. Negative CT cervical spine examination for acute finding. Small bilateral cervical lymph nodes are present not fully assessed. No large or bulky lymphadenopath y pattern. Note: Due to prolonged difficulties with the PACs/dictation systems, the final written report was del ayed. Preliminary verbal report provided at the time of the study.
== END 2018-12-07 19:24 | disposition left against medical advice (07) ==
LOC: ER 14:38 → ERHOLD 18:09
PROVIDERS: ADMIT Family Medicine; ATTEND Family Medicine
DX: R07.9 Chest pain, unspecified (principal); I10 Essential (primary) hypertension; R51 Headache; F17.210 Nicotine dependence, cigarettes, uncomplicated; F17.290 Nicotine dependence, other tobacco product, uncomplicated; Z53.29 Procedure and treatment not carried out because of patient's decision for other reasons
CPT/HCPCS: 36415; 70450; 71045; 71275; 72125; 80048; 80076; 83735; 83880; 84484; 85025; 85610; 93005; 99285; G0378; Q9967